=== PATIENT | female | born 1975 | race Caucasian/White ===

== ENCOUNTER 2022-07-18 11:15 | Observation (INO) ==
[2022-07-18 12:39] LABS: Basophils # 0.1 K/mcL (0.0-0.2); Basophils % 0.6 %; Eosinophils # 0.1 K/mcL (0.0-0.6); Eosinophils % 1.2 %; Hematocrit 41.5 % (35.3-44.9); Hemoglobin 13.6 g/dL (11.5-15.4); Immature Granulocytes % 0.8 % (0-4); Lymphocytes # 2.9 K/mcL (0.6-4.6); Lymphocytes % 32.3 %; Mean Corpuscular HGB Conc 32.8 g/dL (31.6-35.5); Mean Corpuscular Hemoglobin 27.6 pg (28.0-33.3); Mean Corpuscular Volume 84.3 fL (83.0-100.0); Mean Platelet Volume 9.9 fL (9.4-12.4); Monocytes # 0.5 K/mcL (0.0-1.3); Monocytes % 5.3 %; Neutrophils # 5.4 K/mcL (1.6-8.9); Platelet Count 291 K/mcL (140-400); Red Blood Count 4.92 M/mcL (3.82-4.97); Red Cell Distribution Width 12.4 % (11.5-14.5); Segmented Neutrophils % 59.8 %
[2022-07-18 13:39] LABS: BUN/Creatinine Ratio 23 (6-26); Blood Urea Nitrogen 15 mg/dL (6-20); Calcium 9.7 mg/dL (8.6-10.3); Carbon Dioxide 21 mEq/L (23-29); Chloride 106 mEq/L (98-107); Glucose 116 mg/dL (70-105); Osmolality,Calculated 288 (280-300); Potassium 4.3 mEq/L (3.5-5.1); Sodium 138 mEq/L (136-145); Troponin I < 0.03 ng/mL (< 0.04)
[2022-07-18] MEDS ORDERED: Aspirin 81 MG TAB.CHEW PO ONE (16:16)
[2022-07-18 16:41] LABS: Alanine Aminotransferase 28 Units/L (7-52); Albumin 4.5 g/dL (3.5-5.7); Albumin/Globulin Ratio 1.6 (1.1-2.2); Alkaline Phosphatase 89 Units/L (34-104); Aspartate Amino Transferase 19 Units/L (13-39); Bilirubin,Direct 0.2 mg/dL (0.0-0.2); Bilirubin,Indirect 0.9 mg/dL (0.0-1.0); Bilirubin,Total 1.1 mg/dL (0.3-1.0); Globulin 2.9 g/dL (2.4-3.5); Lipase 48 Units/L (11-82); Total Protein 7.4 g/dL (6.4-8.9)
[2022-07-18] MEDS: Nitroglycerin 0.4 MG TAB.SUBL SL PRN ×2 (16:43→18:54)
[2022-07-18] MEDS ORDERED: Naloxone 0.4 MG/ML INJ IVP PRN (19:22)
[2022-07-18] MEDS ORDERED: Ondansetron 4 MG/2 ML VIAL IVP PRN (19:22)
[2022-07-18] MEDS ORDERED: Nitroglycerin 0.4 MG TAB.SUBL SL PRN (19:25)
[2022-07-18] MEDS: Acetaminophen 325 MG TABLET PO PRN (21:48)
[2022-07-19 04:50] LABS: Hematocrit 37.9 % (35.3-44.9); Hemoglobin 12.5 g/dL (11.5-15.4); Platelet Count 254 K/mcL (140-400); Red Blood Count 4.46 M/mcL (3.82-4.97); Red Cell Distribution Width 12.6 % (11.5-14.5); White Blood Count 8.3 K/mcL (4.3-11.1)
[2022-07-19 05:18] LABS: BUN/Creatinine Ratio 23 (6-26); Blood Urea Nitrogen 14 mg/dL (6-20); Calcium 8.9 mg/dL (8.6-10.3); Carbon Dioxide 23 mEq/L (23-29); Chloride 105 mEq/L (98-107); Glucose 156 mg/dL (70-105); Osmolality,Calculated 288 (280-300); Potassium 3.9 mEq/L (3.5-5.1); Sodium 137 mEq/L (136-145)
[2022-07-19 08:28] VITALS: O2SAT 96
[2022-07-19] MEDS ORDERED: Regadenoson 0.4 MG/5 ML SYRINGE IVP ONE (08:49)
[2022-07-19] MEDS ORDERED: Aspirin 81 MG TAB.CHEW PO SCH (09:00)
[2022-07-19 09:29] LABS: Chol/HDL Ratio 2.9 (0-4.9)
[2022-07-19] MEDS: Acetaminophen 325 MG TABLET PO PRN (10:19)
[2022-07-19 10:31] VITALS: BP 120/81; PULSE 68; TEMP 97.6
[2022-07-19 12:28] LABS: Estimated Average Glucose 128 mg/dl; Hemoglobin A1C 6.1 %
== END 2022-07-19 15:35 | disposition home or self-care (01) ==
LOC: EMEROOARM 11:15 → 3BNU 11:15 → SUATTDRO 18:50 → 3BNU 20:12
PROVIDERS: ADMIT General Practice; ATTEND Internal Medicine